=== PATIENT | female | born 1985 | race Hispanic/Latino ===

== ENCOUNTER 2021-03-22 16:41 | Day surgery (SDC) | payer BC ==
[2021-03-22] MEDS ORDERED: hydrALAZINE 20 MG/ML VIAL SLOW IVP PRN (17:56)
[2021-03-22 17:57] LABS: Amnisure Test No Membranes Rupture (No Rupture)
== END 2021-03-22 19:06 | disposition home or self-care (01) ==
LOC: CSHLD/OP 16:41
PROVIDERS: ATTEND Obstetrics & Gynecology
DX: O99.891 Other specified diseases and conditions complicating pregnancy (principal); N89.8 Other specified noninflammatory disorders of vagina; Z3A.28 28 weeks gestation of pregnancy; Z88.1 Allergy status to other antibiotic agents
CPT/HCPCS: 84112; 99283